=== PATIENT | female | born 1970 | race Caucasian/White ===

== ENCOUNTER 2018-07-14 08:58 | Emergency (ER) | payer OTHER ==
[~2018-07-14] VITALS: Ht 162.6 cm; Wt 72.7 kg
[2018-07-14 09:11] VITALS: Ht 162.6 cm; Wt 72.7 kg
[2018-07-14] MEDS ORDERED: MEDROL DOSE PACK4 MG PO (10:33)
[2018-07-14] MEDS ORDERED: KEFLEX500 MG PO (10:33)
[2018-07-14] MEDS ORDERED: BACTRIM DS TABL1 TAB PO (10:33)
[2018-07-14 11:17] VITALS: BP 130/71
== END 2018-07-14 11:17 | disposition home or self-care (01) ==
LOC: D.ER 08:58
DX: S90.862A Insect bite (nonvenomous), left foot, initial encounter (principal); S90.861A Insect bite (nonvenomous), right foot, initial encounter; S60.562A Insect bite (nonvenomous) of left hand, initial encounter; S60.561A Insect bite (nonvenomous) of right hand, initial encounter; W57.XXXA Bitten or stung by nonvenomous insect and other nonvenomous arthropods, initial encounter; Y93.89 Activity, other specified; Y92.019 Unspecified place in single-family (private) house as the place of occurrence of the external cause; L03.114 Cellulitis of left upper limb; L03.113 Cellulitis of right upper limb; L03.116 Cellulitis of left lower limb; L03.115 Cellulitis of right lower limb; F17.200 Nicotine dependence, unspecified, uncomplicated

== ENCOUNTER 2018-08-18 08:27 | Emergency (ER) | payer OTHER ==
[~2018-08-18] VITALS: Ht 162.6 cm; Wt 63.6 kg
[~2018-08-18 08:27] MED LIST: BACTRIM DS TABL1 TAB PO; KEFLEX500 MG PO; MEDROL DOSE PACK4 MG PO
[2018-08-18 08:36] VITALS: Ht 162.6 cm; Wt 63.6 kg
[2018-08-18 09:03] LABS: BASOPHILS 0.5 % (0-2); EOSINOPHILS 7.5 % (0-7); HEMATOCRIT 34.9 % (36.0-48.0); HEMOGLOBIN 10.9 g/dL (12-16); IMMATURE GRANULOCYTES 0.3 % (0-5); LYMPHOCYTES 34.4 % (15-50); MCH 24.2 pg (26.0-34.0); MCHC 31.2 g/dL (31.0-37.0); MCV 77.4 fL (80.0-100.0); MEAN PLATELET VOLUME 9.5 fL (7.4-10.4); MONOCYTES 10.3 % (2-11); PLATELET COUNT 326 10x3/uL (130-400); RBC 4.51 10x6/uL (4.00-5.40); RDW 18.1 % (11.5-14.5); WBC 7.5 10x3/uL (4.8-10.8)
[2018-08-18 09:20] LABS: ALKALINE PHOSPHATASE 77 U/L (46-116); ALT (SGPT) 22 U/L (10-68); BILIRUBIN - TOTAL 0.14 mg/dL (0.2-1.3); CALC OSMOLALITY 274 mosm/kg (275-300); CALCIUM 8.5 mg/dL (8.5-10.1); CARBON DIOXIDE 27.4 mmol/L (21.0-32.0); CHLORIDE - SERUM 105 mmol/L (98-107); CREATININE - SERUM 0.8 mg/dL (0.6-1.3); GLUCOSE 103 mg/dL (74-106); POTASSIUM - SERUM 4.7 mmol/L (3.5-5.1); PROTEIN - SERUM 7.2 g/dL (6.4-8.2); SODIUM 138 mmol/L (136-145); UREA NITROGEN 9 mg/dL (7-18); eGFR NON AFRICAN AMERICAN 81 mL/min (90-120)
[2018-08-18 09:33] LABS: AMYLASE - SERUM 70 U/L (25-115); CKMB 1.1 U/L (0.0-3.6); CREATINE KINASE 71 UL (21-215); LIPASE 117 U/L (73-393)
[2018-08-18 09:35] LABS: TROPONIN-I < 0.017 ng/mL (0.000-0.060)
[2018-08-18 10:17] LABS: APPEARANCE CLOUDY (CLEAR); COLOR YELLOW (YELLOW); NITRITE POSITIVE (NEGATIVE); SPECIFIC GRAVITY 1.015 (1.005-1.020)
[2018-08-18 10:18] LABS: BACTERIA MANY /hpf (NONE SEEN); BILIRUBIN NEGATIVE (NEGATIVE); EPITHELIAL CELLS OCC /hpf (0-5); GLUCOSE NEGATIVE (NEGATIVE); KETONE NEGATIVE (NEGATIVE); PROTEIN TRACE mg/dL (NEGATIVE); RED CELLS - URINE OCC /hpf (0-5); UROBILINOGEN NORMAL (NORMAL); WHITE CELLS - URINE NSEEN /hpf (0-5); YEAST NONE SEEN /hpf (NONE SEEN)
[2018-08-18] MEDS ORDERED: MACROBID100 MG PO (12:25)
[2018-08-18] MEDS ORDERED: ULTRAM50 MG PO (12:25)
[2018-08-18 12:46] LABS: UDS - AMPHET POSITIVE QUAL (NEGATIVE); UDS - BARB NEGATIVE QUAL (NEGATIVE); UDS - BENZO NEGATIVE QUAL (NEGATIVE); UDS - COCAINE NEGATIVE QUAL (NEGATIVE); UDS - OPIATE NEGATIVE QUAL (NEGATIVE); UDS - PCP NEGATIVE QUAL (NEGATIVE); UDS - THC POSITIVE QUAL (NEGATIVE)
[2018-08-18 13:47] VITALS: BP 156/72
== END 2018-08-18 13:48 | disposition home or self-care (01) ==
LOC: D.ER 08:27
PROVIDERS: Emergency Medicine
DX: R07.9 Chest pain, unspecified (principal); D64.9 Anemia, unspecified; E83.42 Hypomagnesemia; F17.200 Nicotine dependence, unspecified, uncomplicated